=== PATIENT | male | born 1975 | race Hispanic/Latino ===

== ENCOUNTER 2017-06-14 19:01 | Emergency (ER) | payer SELFPAY ==
[2017-06-15 01:52] VITALS: BP 121/80
--- NOTE | 2017-06-15 06:56 | Emergency Department Report ---
ED General Adult HPI - General Chief complaint: Earache Stated complaint: LEFT EAR PAIN AND BACK PAIN Time Seen by Provider: 06/15/17 06:25 Source: patient Mode of arrival: Ambulatory Limitations: No Limitations - History of Present Illness Initial comments: Patient is here for a left earache. He denies any associated symptoms. He states that he has chronic back pain. He also states he is in narcotics rehabilitation and can't be prescribed narcotic. He requests "to work excuses" . His problems appear to be quite chronic. He make his for 3 days, lower back pain is 4 months to years. -: days(s), week(s), month(s) Location: back (lower back pain for years), left (earache) Radiation: non-radiation Quality: aching Consistency: intermittent Improves with: none Worsens with: none Associated Symptoms: denies other symptoms Treatments Prior to Arrival: none - Related Data Previous Rx's Medication Instructions Recorded Last Taken Type Azithromycin [Zithromax Z-EVERETT] 250 mg PO DAILY #1 pack 04/02/16 Unknown Rx Lansoprazole [Prevacid] 15 mg PO BID #30 cap 04/02/16 Unknown Rx Cyclobenzaprine HCl [Flexeril 5 MG 5 mg PO TID #14 tab 06/15/17 Unknown Rx TAB] Naproxen [Naprosyn] 500 mg PO DAILY #10 tablet 06/15/17 Unknown Rx Allergies Allergy/AdvReac Type Severity Reaction Status Date / Time No Known Allergies Allergy Verified 04/01/16 18:33 ED Review of Systems ROS: Stated complaint: LEFT EAR PAIN AND BACK PAIN Other details as noted in HPI Constitutional: denies: chills, fever Eyes: denies: eye pain, eye discharge, vision change ENT: ear pain. denies: throat pain Respiratory: denies: cough, shortness of breath, wheezing Cardiovascular: denies: chest pain, palpitations Endocrine: no symptoms reported Gastrointestinal: denies: abdominal pain, nausea, diarrhea Genitourinary: denies: urgency, dysuria Musculoskeletal: back pain. 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 - Social History Smoking Status: Current Every Day Smoker Substance Use Type: None - Medications Home Medications: Home Medications Medication Instructions Recorded Confirmed Last Taken Type Azithromycin [Zithromax Z-EVERETT] 250 mg PO DAILY #1 pack 04/02/16 Unknown Rx Lansoprazole [Prevacid] 15 mg PO BID #30 cap 04/02/16 Unknown Rx Cyclobenzaprine HCl [Flexeril 5 MG 5 mg PO TID #14 tab 06/15/17 Unknown Rx TAB] Naproxen [Naprosyn] 500 mg PO DAILY #10 tablet 06/15/17 Unknown Rx ED Physical Exam - General Limitations: No Limitations General appearance: alert, in no apparent distress - Head Head exam: Present: atraumatic, normocephalic - Eye Eye exam: Present: normal appearance, PERRL, EOMI. Absent: scleral icterus - ENT ENT exam: Present: mucous membranes moist, TM's normal bilaterally, other ( there is an impacted third molar on the left) - Neck Neck exam: Present: normal inspection - Respiratory Respiratory exam: Present: normal lung sounds bilaterally. Absent: respiratory distress - Cardiovascular Cardiovascular Exam: Present: regular rate, normal rhythm. Absent: systolic murmur, diastolic murmur, rubs, gallop - GI/Abdominal GI/Abdominal exam: Present: soft, normal bowel sounds. Absent: distended, tenderness, guarding, rebound, rigid - Rectal Rectal exam: Present: deferred - Extremities Exam Extremities exam: Present: normal inspection, normal capillary refill. Absent: tenderness, calf tenderness - Back Exam Back exam: Present: normal inspection, full ROM. Absent: tenderness, CVA tenderness (R), CVA tenderness (L), muscle spasm, paraspinal tenderness, vertebral tenderness - Neurological Exam Neurological exam: Present: alert, oriented X3, CN II-XII intact. Absent: motor sensory deficit - Psychiatric Psychiatric exam: Present: normal affect, normal mood - Skin Skin exam: Present: warm, dry, intact, normal color. Absent: rash ED Course Vital Signs 06/14/17 06/15/17 06/15/17 19:55 01:51 01:52 Temperature 98.7 F 98.6 F Pulse Rate 97 H 92 H Respiratory 16 18 18 Rate Blood Pressure 119/80 Blood Pressure 121/80 [Left] O2 Sat by Pulse 100 99 Oximetry Critical care attestation.: If time is entered above; I have spent that time in minutes in the direct care of this critically ill patient, excluding procedure time. ED Disposition Clinical Impression: Impacted third molar tooth, Otalgia of left ear Lower back pain Qualifiers: Chronicity: chronic Back pain laterality: unspecified Sciatica presence: without sciatica Qualified Code(s): M54.5 - Low back pain; G89.29 - Other chronic pain; G89.29 - Other chronic pain Disposition: - TO HOME OR SELFCARE Is pt being admited?: No Does the pt Need Aspirin: No Condition: Stable Instructions: Toothache (ED), Earache (ED), Arthralgia (ED) Additional Instructions: Abdomen impacted wisdom tooth. That would appear to be the cause of urinary discomfort. See dentist for evaluation. See primary care for urine chronic back pain. See ENT doctor if ear pain is persistent. Prescriptions: Cyclobenzaprine HCl [Flexeril 5 MG TAB] 5 mg PO TID #14 tab Naproxen [Naprosyn] 500 mg PO DAILY #10 tablet Referrals: PRIMARY CARE, [Primary Care Provider] - 3-5 Days Time of Disposition: 06:59
== END 2017-06-15 07:13 | disposition home or self-care (01) ==
LOC: ED 19:01
DX: M54.5 Low back pain (principal); K01.1 Impacted teeth; H92.02 Otalgia, left ear; F17.210 Nicotine dependence, cigarettes, uncomplicated; Z95.0 Presence of cardiac pacemaker
CPT/HCPCS: 99282